=== PATIENT | female | born 1935 | race Caucasian/White ===

== ENCOUNTER → 2016-09-07 | Outpatient (CLI) | payer OTHER ==
[~2016-09-07] MED LIST: LATA0.009; PRM625 PO; TRAM-10 PO
--- NOTE | 2016-09-07 13:42 | MAMMOGRAPHY REPORT ---
BILATERAL DIGITAL SCREENING MAMMOGRAM TOMOSYNTHESIS WITH CAD: 09/07/2016 CLINICAL HISTORY: Routine screening. Patient has no complaints. TECHNIQUE: Breast tomosynthesis in addition to standard 2D mammography was performed. Current study was also evaluated with a Computer Aided Detection (CAD) system. COMPARISON: Comparison is made to exams dated: 09/07/2015 mammogram, 09/03/2014 mammogram, 09/02/2013 ma mmogram, 08/29/2012 mammogram, 08/29/2011 mammogram, and 08/26/2010 mammogram - [facility] nter. BREAST COMPOSITION: There are scattered areas of fibroglandular density in both breasts. FINDINGS: No suspicious masses, calcifications, or areas of architectural distortion are noted in ei ther breast. There has been no significant interval change compared to prior exams. IMPRESSION: ACR BI-RADS CATEGORY 1: NEGATIVE There is no mammographic evidence of malignancy. A 1 year screening mammogram is recommended. The pa tient will receive written notification of the results. Approximately 10% of breast cancers are not detected with mammography. A negative mammographic report should not delay biopsy if a clinically suggestive mass is present. Belen Frances M.D. ah/:09/07/2016 12:35:54 Textile Bag Sewer: Sofia BROWN(Cameron)(Amanda), [facility] letter sent: Normal 1/2 BI-RADS Code: ACR BI-RADS Category 1: Negative
== END | disposition home or self-care (01) ==
LOC: C.MAMM 12:08
PROVIDERS: ATTEND Obstetrics & Gynecology
DX: Z12.31 Encounter for screening mammogram for malignant neoplasm of breast (principal)

== ENCOUNTER → 2016-11-16 | Outpatient (CLI) | payer OTHER ==
[2016-11-16 12:26] LABS: BASO % 0.2 %; BASO ABS # 0.01 K/uL (0-0.2); COMPLETE YES; EOS % 1.8 %; HEMATOCRIT 41.1 % (37-47); IG% 0.2 %; LYMPH ABS # 1.33 K/uL (1.2-3.4); MEAN CELL VOLUME 99.8 fL (80-100); MEAN CORPUSCULAR HEMOGLOBIN 32.5 pg (25-34); MEAN CORPUSCULAR HGB CONC 32.6 g/dl (32-36); MEAN PLATELET VOLUME 11.2 fL (7.4-10.4); MONO % 8.9 %; NEUT % 66.9 %; PLATELET COUNT 236 K/uL (130-400); RED BLOOD COUNT 4.12 M/uL (4.2-5.4); WHITE BLOOD COUNT 6.04 K/uL (4.8-10.8)
[2016-11-16 13:11] LABS: ALT/SGPT 18 U/L (12-78); BLOOD UREA NITROGEN 14 mg/dl (7-18); BUN/CREATININE RATIO 17.1 (10-20); CALCIUM 8.9 mg/dl (8.5-10.1); CARBON DIOXIDE 27 mmol/L (21-32); CHLORIDE 106 mmol/L (98-107); CHOLESTEROL 202 mg/dl (0-200); CREATININE 0.82 mg/dl (0.60-1.20); GLUCOSE 83 mg/dl (70-99); POTASSIUM 4.1 mmol/L (3.5-5.1); SODIUM 137 mmol/L (136-145); TRIGLYCERIDES 87 mg/dl (0-150); VERY LOW DENSITY LIPOPROT CALC 17 mg/dl
[2016-11-16 13:21] LABS: ALKALINE PHOSPHATASE 79 U/L (45-117); AST/SGOT 21 U/L (15-37); CHOLESTEROL/HDL RATIO 2.7; HDL CHOLESTEROL 74 mg/dl; LDL CHOLESTEROL CALCULATED 111 mg/dl
== END | disposition home or self-care (01) ==
LOC: C.LABPVFM 07:55
PROVIDERS: ATTEND Family Medicine
DX: Z13.220 Encounter for screening for lipoid disorders (principal); R53.83 Other fatigue

== ENCOUNTER → 2017-06-07 | Outpatient (CLI) | payer OTHER | END | disposition home or self-care (01) | LOC: C.PAPS 13:50 | PROVIDERS: ATTEND Obstetrics & Gynecology | DX: Z12.4 Encounter for screening for malignant neoplasm of cervix (principal) ==

== ENCOUNTER → 2017-09-11 | Outpatient (CLI) | payer OTHER ==
--- NOTE | 2017-09-12 14:44 | MAMMOGRAPHY REPORT ---
BILATERAL DIGITAL SCREENING MAMMOGRAM TOMOSYNTHESIS WITH CAD: 09/11/2017 CLINICAL HISTORY: Routine screening. Patient has no complaints. TECHNIQUE: The study was acquired using full field digital technology and interpreted from soft copy. Breast tomosynthesis in addition to standard 2D mammography was performed. Current study was also ev aluated with a Computer Aided Detection (CAD) system. COMPARISON: Comparison is made to exams dated: 09/07/2016 mammogram, 09/07/2015 mammogram, 09/24/2014 anna mogram, 09/03/2014 mammogram, 09/02/2013 mammogram, and 08/29/2012 mammogram - [facility]. BREAST COMPOSITION: There are scattered areas of fibroglandular density in both breasts. FINDINGS: There are mild vascular calcifications in the breasts. No suspicious mass, architectural di stortion or cluster of microcalcifications is seen. IMPRESSION: ACR BI-RADS CATEGORY 1: NEGATIVE There is no mammographic evidence of malignancy. A 1 year screening mammogram is recommended.( 019) The patient will receive written notification of the results. Some breast cancers are not detected with mammography. A negative mammographic report should not gabriela y biopsy if a clinically suggestive mass is present. Lisseth Barfield M.D. ay/:09/11/2017 17:33:22 Linoleum Printer: RT John(Cameron)(M), [facility] letter sent: Normal 1/2 BI-RADS Code: ACR BI-RADS Category 1: Negative
== END | disposition home or self-care (01) ==
LOC: C.MAMM 11:45
PROVIDERS: ATTEND Obstetrics & Gynecology
DX: Z12.31 Encounter for screening mammogram for malignant neoplasm of breast (principal)

== ENCOUNTER 2023-10-26 10:14 | Inpatient (IN) ==
--- NOTE | 2023-10-26 10:27 | Emergency Department Note ---
Impression & Plan COVID-19, Ambulatory dysfunction, Adult failure to thrive ED Provider Note Name: RAN BRAY Age: 87 Sex: Female Arrives Via: Ambulance Informant: Patient and her family ED Provider: Haseeb Brewster MD Chief Complaint: Weakness Impression: As per impressions above Medical Decision Making: Nohemi 87-year-old female arrives for evaluation of generalized weakness. Patient woke up this morning was unable to get up and ambulate. Due to the degree of weakness she arrives to the ER for evaluation. No focal deficits on examination other than diffuse weakness. Patient is breathing comfortably she is in no distress otherwise. She did get a COVID and flu vaccine yesterday. Laboratory workup was obtained along with COVID testing. She is positive for COVID. I suspect this is the cause of her diffuse weakness. Due to her difficulty with ambulation she will need hospitalization. She does not have any significant shortness of breath, pneumonia, sepsis, evidence of PE or evidence of stroke at this time. Triage/Nursing Notes reviewed by Me Differential:Infection, dehydration, metabolic abnormality, hypo/hyperglycemia, electrolyte disturbance, anemia, hypoxia, cardiac sources, intracerebral event, toxicologic, neurologic, as well as other pathologies. Vital Signs: reviewed and remarkable for mild hypertension, normal temperature on arrival Interventions: Normal saline bolus 500 mL IV Labs:ED labs Reviewed by me and remarkable for covid positive Imagin view chest x-ray as per my interpretation no infiltrate or effusion appreciated EKG:As per my interpretation. Indication weakness. Sinus tachycardia 103 bpm without ectopy nor ischemia. There is evidence of a left bundle branch block and some lateral T wave inversions. Similar to EKG of 10/17/2022 Cardiac/Tele Monitoring: Cardiac Monitoring: An Order was placed for continuous cardiac monitoring. The monitor shows a rate of 100 with a sinus tach rhythm. Consults:Discussed with [facility] hospitalist who will further evaluate for management. Plan: Disposition:Hospitalization. Condition: Good History of Present Illness: Nohemi 87-year-old female arrives for evaluation of weakness. Patient notes she awoke this morning and when trying to get out of bed she felt too weak. She did collapsed to the floor and sat on the ground for some time. States she just has no energy. Primarily weakness is in her legs. She continues to build to move them. She had some mild soreness in her low back when she had collapsed but denies any current back pain or discomfort.. Did not hit her head or lose consciousness. She denies any neck pain, chest pain, shortness of breath, palpitations, nausea, vomiting, urinary symptoms, diarrhea, current back pain, paresthesias down her legs or other concerning signs or symptoms. She had been feeling well up until this morning. Notes that she did get both her flu and her COVID-vaccine yesterday. No known sick contacts. Past Medical History:See Below Home Medications:See Below Allergies:See Below Vitals:Blood Pressure: 130/60, Pulse 80, RR 18, T 36.8C, O2 95% on RA Physical Exam: GENERAL: Patient is tired/dehydrated appearing and in minimal distress. HEAD: AT/NC RESPIRATORY: No dyspnea. Clear to auscultation and equal bilaterally. CARDIOVASCULAR: Regular rate and rhythm.No murmur appreciated. GASTROINTESTINAL: Abdomen soft, non-tender, no peritonitis. BACK: No midline tenderness, no CVA tenderness EXTREMITIES: Normal motion all extremities, no cyanosis, no edema. NEUROLOGIC: Alert and oriented. No focal neurologic deficits appreciated SKIN: Venous stasis in legs, No rash, no jaundice, no diaphoresis. PSYCH: Appropriate GCS: 15 ED Course: Times/Reassessments: Stable feeling a bit better after IV fluids but still too weak to ambulate and thus agreeable to hospitalization Haseeb Brewster MD Past Med/Surg History Problem List (Updated 10/26/23 @ 16:07 by Haseeb Brewster MD) Adult failure to thrive (Acute) Ambulatory dysfunction (Acute) COVID-19 (Acute) COVID-19 virus infection Generalized weakness Arthritis of carpometacarpal (CMC) joint of right thumb Insufficiency of right posterior tibial tendon Left bundle branch block White coat syndrome with diagnosis of hypertension Encounter for immunization Palpitations Bilateral rotator cuff dysfunction Status post fall Fatigue Bilateral knee effusions Chondrocalcinosis Gout Shoulder pain Bilateral primary osteoarthritis of knee Osteoarthritis (Chronic) Hypertension currently not on meds Hypophosphatemia S/P small bowel resection (04/07/20) Laparotomy with lysis of adhesions and small bowel resection with anastomosis. Dr. Sanchez 04/07/2020 Vitamin D deficiency (Chronic) Bone/cartilage disorder Right ovarian cyst simple cyst per US, followed by gynecology teacher Medical History Encounter for examination following treatment at hospital Surgical History Hx of colonoscopy Hx of tonsillectomy H/O oophorectomy Hx of appendectomy S/P total abdominal hysterectomy Family History Father Myocardial infarction Mother Cancer Sister Breast cancer Denies family history of Ovarian cancer Prostate cancer Colorectal cancer Social History Smoking Status: Never smoker Second Hand Exposure: No; Do You Dip or Chew Tobacco: No; Hx Alcohol Use: Yes Alcohol type: wine Alcohol Intake Frequency: Monthly or Less Hx Substance Use: No Preferred Language: Italian Communication Ability: Effective Visual Impairment: No Limitations Hearing Ability: Use of Hearing Aid [place] Machine Operator Required: No Beliefs That Will Affect Care: None marital status: / Current Living Situation: Alone Current Living Situation Comment: [place] current occupational status: retired current occupation: retired teacher How many Children do You have: 2 Feels Safe at Home: Yes Safety Concerns: Feels Safe At This Time Childhood Exposure to Second-Hand Smoke: No Diet: regular caffeine: Yes during the past year weight has: remained stable Dental Care, Regularly: Yes Physical Activity Frequency: 3-4 Times per Week Seatbelt Use: always Sunscreen Use: Yes Assistive Devices: None Allergies Allergies Allergy/AdvReac Type Severity Reaction Status Date / Time Penicillins Allergy Unknown Unknown Verified 10/26/23 13:13 amoxicillin Allergy Unknown Verified 10/26/23 13:13 gabapentin AdvReac Unknown Verified 10/26/23 13:13 methocarbamol AdvReac Facial Verified 10/26/23 13:13 redness and swelling. Home Meds Home Medications Medication Instructions Recorded Confirmed multivitamin (Multiple Vitamins 1 tab PO DAILY 05/20/19 10/26/23 tablet) latanoprost 0.005 % eye drops 1 drops OPL DAILY 08/12/19 10/26/23 (Xalatan) cholecalciferol (vitamin D3) 25 1,000 unit PO DAILY 04/02/20 10/26/23 mcg (1,000 unit) tablet (Vitamin D3) cyanocobalamin (vitamin B-12) 1,000 mcg PO DAILY 04/02/20 10/26/23 1,000 mcg tablet (Vitamin B-12) acetaminophen 650 mg 650 mg PO BID 10/17/22 10/26/23 tablet,extended release ibuprofen 200 mg tablet (Advil) 200 mg PO BID 10/17/22 10/26/23 ascorbic acid 7.5 mg-vit E 7.5 2 tab PO DAILY 12/06/22 10/26/23 unit-biotin 1,250 mcg chewable tablet (Hair,Skin,Nails with Biotin) Previous Rx's Medication Instructions Recorded conjugated estrogens 0.3 mg tablet 0.3 mg PO Q OTHER DAY #45 tabs 09/20/23 Results & Data (ED) Vital Signs Vital Signs - 24 hr 10/26/23 10:27 10/26/23 10:35 10/26/23 10:42 Temperature 36.6 C Temperature Source Oral Pulse Rate 100 H 104 H 98 H Pulse Rate from SpO2 Sensor 98 H Respiratory Rate 18 22 Respiratory Effort / Characteristics Non-Labored Spontaneous Respiratory Depth Normal Respiratory Pattern Regular Blood Pressure 174/78 H Blood Pressure Mean 110 Blood Pressure Position Semi-fowlers Pulse Oximetry 95 94 Oxygen Delivery Method Room Air Sepsis Recent Fever Within 48 Hours No Sepsis New/Unexplained Change in Mental Status No Sepsis Action Taken by Nursing No Action Required 10/26/23 11:15 10/26/23 11:27 Temperature Temperature Source Pulse Rate 92 H 90 Pulse Rate from SpO2 Sensor 90 86 Respiratory Rate 21 18 Respiratory Effort / Characteristics Respiratory Depth Respiratory Pattern Blood Pressure Blood Pressure Mean Blood Pressure Position Pulse Oximetry 93 95 Oxygen Delivery Method Sepsis Recent Fever Within 48 Hours Sepsis New/Unexplained Change in Mental Status Sepsis Action Taken by Nursing Laboratory Data 10/26/23 10:25 10/26/23 10:25 Lab Results 10/26/23 Range/Units 10:25 WBC 5.62 (4.8-10.8) K/ul RBC 4.04 L (4.20-5.40) M/uL Hgb 13.3 (12.0-16.0) g/dl Hct 38.7 (37.0-47.0) % MCV 95.8 (80.0-100.0) fL MCH 32.9 (25.0-34.0) pg MCHC 34.4 (32.0-36.0) g/dL RDW Std Deviation 49.0 H (36.4-46.3) fL RDW Coeff of Godfrey 13.7 (11.5-14.5) % Plt Count 208 (130-400) K/uL MPV 10.6 (9.4-12.4) fL Immature Gran % (Auto) 0.0 % Neut % (Auto) 87.4 % Lymph % (Auto) 4.1 % [place] % (Auto) 7.8 % Eos % (Auto) 0.5 % Baso % (Auto) 0.2 % Neut # (Auto) 4.91 (1.40-6.50) K/uL Lymph # (Auto) 0.23 L (1.20-3.40) K/uL [place] # (Auto) 0.44 (0.11-0.59) K/uL Eos # (Auto) 0.03 (0.00-0.50) K/uL Baso # (Auto) 0.01 (0.00-0.20) K/uL Immature Gran # (Auto) 0.00 L (0.01-0.20) K/uL Sodium 136 (136-145) mmol/L Potassium 4.0 (3.5-5.1) mmol/L Chloride 100 (98-107) mmol/L Carbon Dioxide 31 (21-32) mmol/L Anion Gap 5 (3-11) BUN 16 (6-23) mg/dl Creatinine 0.77 (0.6-1.2) mg/dl Est Cr Clr Drug Dosing 46.3 ml/min Est GFR ( Amer) 80.5 ml/min Est GFR (Non-Af Amer) 69.4 ml/min BUN/Creatinine Ratio 20.8 H (10-20) Glucose 120 H (70-99(Fasting)) mg/dl Calcium 9.5 (8.6-10.3) mg/dl Magnesium 1.8 (1.7-2.4) mg/dl Total Bilirubin 0.7 (0.2-1.0) mg/dl Direct Bilirubin 0.2 (0-0.2) mg/dl AST 18 (13-39) U/L ALT 9 (7-52) U/L Alkaline Phosphatase 59 (34-104) U/L Troponin I High Sens 5.2 (0-14) pg/ml Total Protein 6.9 (6.0-8.3) gm/dl Albumin 4.1 (3.4-5.0) gm/dl Procalcitonin 0.05 (0-0.5) ng/ml TSH 2.920 (0.300-4.500) uIu/ml SARS-CoV-2 (PCR) POSITIVE A (Negative) Influenza Type A (PCR) Negative (Neg) Influenza Type B (PCR) Negative (Neg) RSV (RT-PCR) Negative (Neg) Administered Medications Acetaminophen (Acetaminophen 325 Mg Tab) 650 mg PO Q6H PRN PRN Reason: pain(1-4),headache,fever Stop: 11/25/23 11:39 Last Admin: 10/26/23 15:53 Dose: 650 mg Documented By: SHAMIKA Discontinued Medications Sodium Chloride (Nss) 500 mls @ 999 mls/hr IV .Q31M ONE Stop: 10/26/23 10:54 Last Infusion: 10/26/23 12:12 Dose: Infused Documented By: Admin: 10/26/23 10:31 Dose: 999 mls/hr Documented By: WOODROW Imaging Data Radiologist's Impression: Chest X-Ray 10/26/23 10:25 XR chest 1V portable CLINICAL HISTORY: Weakness. COMPARISON STUDY: Chest radiograph chest CT October 17, 2022. FINDINGS: Lung volumes are normal. Lungs are clear. There is no pneumothorax or pleural effusion. Mild cardiomegaly. Mediastinal contours are normal. There is no evidence for pulmonary edema. A calcified left lower lobe granuloma is incidentally noted. IMPRESSION: No acute cardiopulmonary findings. ACT 112: Negative or not required by law. Electronically signed by: Marcellus Cabrera M.D. 10/26/2023 10:48 AM Discharge Plan Visit Data Chief Complaint: Leg Weakness, Bilateral Stated Complaint: LEG WEAKNESS ED Provider: Haseeb Brewster Discharge Problem: COVID-19, Ambulatory dysfunction, Adult failure to thrive Patient Disposition: Admitted As Inpatient Discharge Instructions Interventions: ED Discharge Assessment Last Done: 10/26/23 16:06
[2023-10-26] MEDS: SODIUM CHLORIDE 0.9% 500 ML IV ONE (10:31)
[2023-10-26 10:40] LABS: Basophils # (auto) 0.01 K/uL (0.00-0.20); Basophils % (auto) 0.2 %; Eosinophils # (auto) 0.03 K/uL (0.00-0.50); Eosinophils % (auto) 0.5 %; Hematocrit (blood only) 38.7 % (37.0-47.0); Hemoglobin 13.3 g/dl (12.0-16.0); Lymphocytes # (auto) 0.23 K/uL (1.20-3.40); Lymphocytes % (auto) 4.1 %; Mean Corpuscular Hemoglobin 32.9 pg (25.0-34.0); Mean Corpuscular Hgb Conc 34.4 g/dL (32.0-36.0); Mean Corpuscular Volume 95.8 fL (80.0-100.0); Mean Platelet Volume 10.6 fL (9.4-12.4); Monocytes # (auto) 0.44 K/uL (0.11-0.59); Monocytes % (auto) 7.8 %; Neutrophils # (auto) 4.91 K/uL (1.40-6.50); Neutrophils % (auto) 87.4 %; Platelet Count 208 K/uL (130-400); RDW Coefficient of Variation 13.7 % (11.5-14.5); Red Blood Count 4.04 M/uL (4.20-5.40); White Blood Count 5.62 K/ul (4.8-10.8)
--- NOTE | 2023-10-26 10:49 | XRay Report ---
XR chest 1V portable CLINICAL HISTORY: Weakness. COMPARISON STUDY: Chest radiograph chest CT October 17, 2022. FINDINGS: Lung volumes are normal. Lungs are clear. There is no pneumothorax or pleural effusion. Mil d cardiomegaly. Mediastinal contours are normal. There is no evidence for pulmonary edema. A calcifie d left lower lobe granuloma is incidentally noted. IMPRESSION: No acute cardiopulmonary findings. ACT 112: Negative or not required by law. Electronically signed by: Marcellus Cabrera M.D. 10/26/2023 10:48 AM
[2023-10-26 10:56] LABS: Albumin Level 4.1 gm/dl (3.4-5.0); BUN Creatinine Ratio 20.8 (10-20); Bilirubin Direct 0.2 mg/dl (0-0.2); Bilirubin,Total 0.7 mg/dl (0.2-1.0); Calcium 9.5 mg/dl (8.6-10.3); Creatinine Clr Calc Pharmacy 46.3 ml/min; Est GFR (African American) 80.5 ml/min; Est GFR (Non-African American) 69.4 ml/min; Magnesium 1.8 mg/dl (1.7-2.4); Total Protein 6.9 gm/dl (6.0-8.3)
[2023-10-26 11:02] LABS: Troponin I High Sensitivity 5.2 pg/ml (0-14)
[2023-10-26 11:11] LABS: Influenza A virus by PCR Negative (Neg); Influenza B virus by PCR Negative (Neg); RSV by PCR Negative (Neg); SARS CoV2 RNA(COVID-19) Ceph POSITIVE (Negative)
[2023-10-26 11:12] LABS: Thyroid Stimulating Hormone 2.92 uIu/ml (0.300-4.500)
--- NOTE | 2023-10-26 11:36 | History & Physical Report ---
Date of Service October 26, 2023 Assessment & Plan (1) Generalized weakness: Plan: Admit to [facility] on pulse oximetry Currently stable nontoxic-appearing Presented to ED via EMS after sustaining a fall trying to get out of bed this morning Patient woke with generalized weakness/fatigue and confirms that her bilateral knees gave out when she tried to stand out of bed Denies symptoms such as lightheadedness, dizziness, chest pain, palpitations, shortness of breath prior to her fall Did not lose consciousness, is not on anticoagulation At this time it appears her generalized weakness is due to acute COVID-19 infection, patient and her family were educated that she did not receive COVID from the COVID-19 vaccine but that receiving the vaccine on 10/25/2023 likely increased her autoimmune activity causing significant weakness Patient is stable on room air, discussed the option of outpatient prescription for Paxlovid which family can bring in and we can give to her starting today, they are in agreement Full dose prescription for Paxlovid has been called to [facility], daughter will pick this prescription up this afternoon and bring back in Miscellaneous med rec order has been placed with nursing communication order to send prescription for Paxlovid down to the pharmacy for confirmation Supportive care for now with incentive spirometry, as needed albuterol SQ Lovenox for DVT prophylaxis PT/OT consults, fall/aspiration precautions Heart healthy diet AM CBC, CMP, mag, PT/INR (2) Fall: Plan: Experienced a fall while attempting to get out of bed this morning due to her bilateral knees giving out from generalized weakness Likely due to generalized weakness from acute COVID-19 infection No acute trauma on exam, nonfocal neurologic exam Do not think her fall/generalized weakness is due to neurologic complication from vaccination at this time such as Guillain-Sams syndrome, continue to monitor for patient with Paxlovid and supportive care for now Rest of care per generalized weakness plan (3) COVID-19 virus infection: Plan: Stable on room air and in no respiratory distress Only symptoms at this time are generalized weakness Will start Paxlovid this afternoon when daughter brings prescription which was called in at the time of admission Plan Patient was discussed with Dr. Vergara at the time of the admission History of Present Illness Chief Complaint: Generalized weakness, fall Primary Care Provider: CHAYO Darden is a 87-year-old female with a past medical history significant for hypertension, left bundle branch block, and gout who presented to [facility] ED via EMS on 10/26/2023 after sustaining a fall while trying to get out of bed due to generalized weakness. The patient reported she was recently around individuals who are positive for COVID-19 and happened receive her COVID-19 and influenza vaccinations on 10/25/2023. On arrival she was noted to be hypertensive at 174/78, tachycardic at 104, but otherwise stable. Labs were significant for SARS-CoV-2 PCR positive with influenza/RSV screens negative. Chest x-ray is negative for acute findings. We are asked to admit the patient as she is currently too weak to safely ambulate at home herself. Prior to admission the patient was given 500 mL normal saline. Patient was seen in bed no acute distress at time the exam with her daughter and son-in-law sitting bedside, history is obtained from all. They confirm that multiple family members were recently diagnosed with COVID and that the patient received her doses of the COVID-19 and influenza vaccines on 10/25/2023. The patient states that when she woke this a.m. she was significantly fatigued and generally weak. When she tried to get out of bed her bilateral knees buckled and gave out causing her to fall to the ground. She landed on her buttocks and does not believe that she hit her head. She denies losing consciousness. Denies any pain from her fall. No recent headache, changes in vision, hearing, taste, smell, paresthesias, unilateral weakness, chest pain, shortness of breath, abdominal pain, nausea/vomiting, diarrhea, dysuria/hematuria, or recent lower extremity swelling. We discussed the option of having family pickler helper an outpatient prescription for Paxlovid which they could bring in so she could begin treatment during this admission. They are in agreement with this plan, her daughter will pickler helper the prescription this afternoon and bring it back to the hospital. Patient confirms she is a DNR/DNI and would want her daughter to make medical decisions for her if she cannot make them herself. Please refer to Dr. Vergara's attestation for any changes to the treatment plan Allergies Allergy/AdvReac Type Severity Reaction Status Date / Time Penicillins Allergy Unknown Unknown Verified 10/26/23 13:13 amoxicillin Allergy Unknown Verified 10/26/23 13:13 gabapentin AdvReac Unknown Verified 10/26/23 13:13 methocarbamol AdvReac Facial Verified 10/26/23 13:13 redness and swelling. Home Medications Medication Instructions Recorded Confirmed Type multivitamin (Multiple Vitamins 1 tab PO DAILY 05/20/19 10/26/23 History tablet) latanoprost 0.005 % eye drops 1 drops OPL DAILY 08/12/19 10/26/23 History (Xalatan) cholecalciferol (vitamin D3) 25 1,000 unit PO DAILY 04/02/20 10/26/23 History mcg (1,000 unit) tablet (Vitamin D3) cyanocobalamin (vitamin B-12) 1,000 mcg PO DAILY 04/02/20 10/26/23 History 1,000 mcg tablet (Vitamin B-12) acetaminophen 650 mg 650 mg PO BID 10/17/22 10/26/23 History tablet,extended release ibuprofen 200 mg tablet (Advil) 200 mg PO BID 10/17/22 10/26/23 History ascorbic acid 7.5 mg-vit E 7.5 2 tab PO DAILY 12/06/22 10/26/23 History unit-biotin 1,250 mcg chewable tablet (Hair,Skin,Nails with Biotin) conjugated estrogens 0.3 mg tablet 0.3 mg PO Q OTHER DAY #45 tabs 09/20/23 10/26/23 Rx Past Med/Surg History Problem List (Updated 10/26/23 @ 16:07 by Haseeb Brewster MD) Adult failure to thrive (Acute) Ambulatory dysfunction (Acute) COVID-19 (Acute) COVID-19 virus infection Generalized weakness Arthritis of carpometacarpal (CMC) joint of right thumb Insufficiency of right posterior tibial tendon Left bundle branch block White coat syndrome with diagnosis of hypertension Encounter for immunization Palpitations Bilateral rotator cuff dysfunction Status post fall Fatigue Bilateral knee effusions Chondrocalcinosis Gout Shoulder pain Bilateral primary osteoarthritis of knee Osteoarthritis (Chronic) Hypertension currently not on meds Hypophosphatemia S/P small bowel resection (04/07/20) Laparotomy with lysis of adhesions and small bowel resection with anastomosis. Dr. Sanchez 04/07/2020 Vitamin D deficiency (Chronic) Bone/cartilage disorder Right ovarian cyst simple cyst per US, followed by plastics fabricator and assembler Medical History Encounter for examination following treatment at hospital Surgical History Hx of colonoscopy Hx of tonsillectomy H/O oophorectomy Hx of appendectomy S/P total abdominal hysterectomy Family History Father Myocardial infarction Mother Cancer Sister Breast cancer Denies family history of Ovarian cancer Prostate cancer Colorectal cancer Social History Smoking Status: Never smoker Second Hand Exposure: No; Do You Dip or Chew Tobacco: No; Hx Alcohol Use: Yes Alcohol type: wine Alcohol Intake Frequency: Monthly or Less Hx Substance Use: No Preferred Language: Bulgarian Communication Ability: Effective Visual Impairment: No Limitations Hearing Ability: Use of Hearing Aid Cell Operation Supervisor Required: No Beliefs That Will Affect Care: None marital status: / Current Living Situation: Alone Current Living Situation Comment: [place] current occupational status: retired current occupation: retired teacher How many Children do You have: 2 Feels Safe at Home: Yes Safety Concerns: Feels Safe At This Time Childhood Exposure to Second-Hand Smoke: No Diet: regular caffeine: Yes during the past year weight has: remained stable Dental Care, Regularly: Yes Physical Activity Frequency: 3-4 Times per Week Seatbelt Use: always Sunscreen Use: Yes Assistive Devices: None Physical Exam Physical Exam: Physical Exam: General: In no acute distress, stated age, nontoxic-appearing HEENT: Normocephalic, atraumatic, no scleral icterus, pupils around round, symmetrical, and reactive to light, moist mucus membranes, trachea midline, no thyromegaly Chest/Pulm: No respiratory distress, symmetrical chest expansion, clear breath sounds throughout Cardiac: RRR, no murmurs noted Abdomen: Negative for ascites and bruising, normoactive bowel sounds, soft, non-tender to palpation throughout Musculoskeletal: Symmetrical and without signs of acute trauma, upper and lower extremities with full ROM, no atrophy, spasticity, or flaccidity Extremities: Radial, dorsalis pedis, and posterior tibial pulses are intact and symmetrical, no edema noted in the BL LE's Skin: Warm, dry, no rashes , lesions, or scars noted Neuro: Alert and oriented to person, place, month, year, and president, no focal defects, intact sensation motor function in the bilateral lower extremities, symmetrical 4+ strength in the bilateral lower extremities, no tremors noted Psych: No acute distress, calm and cooperative during the exam Results & Data Results & Data Vital Signs (Past 12 Hours) Vital Signs Temp Pulse Resp BP Pulse Ox O2 Del Method 10/26/23 10:35 104 H 10/26/23 10:27 36.6 C 100 H 18 174/78 H 95 Room Air Laboratory Results Abnormal lab results 10/26/23 Range/Units 10:25 RBC 4.04 L (4.20-5.40) M/uL RDW Std Deviation 49.0 H (36.4-46.3) fL Lymph # (Auto) 0.23 L (1.20-3.40) K/uL Immature Gran # (Auto) 0.00 L (0.01-0.20) K/uL BUN/Creatinine Ratio 20.8 H (10-20) Glucose 120 H (70-99(Fasting)) mg/dl SARS-CoV-2 (PCR) POSITIVE A (Negative) Diagnostic Findings Chest X-Ray 10/26/23 10:25 XR chest 1V portable CLINICAL HISTORY: Weakness. COMPARISON STUDY: Chest radiograph chest CT October 17, 2022. FINDINGS: Lung volumes are normal. Lungs are clear. There is no pneumothorax or pleural effusion. Mild cardiomegaly. Mediastinal contours are normal. There is no evidence for pulmonary edema. A calcified left lower lobe granuloma is incidentally noted. IMPRESSION: No acute cardiopulmonary findings. ACT 112: Negative or not required by law. Electronically signed by: Marcellus Cabrera M.D. 10/26/2023 10:48 AM Code Status & VTE Plan Code Status DNR/DNI VTE Prophylaxis Plan VTE Prophylaxis will be ordered: Yes Supervising Physician Co-Signing Physician Notes I personally saw and examined the patient. I verified all rodriguez points and agree with Domingo Lao PA-C with the following exceptions and/or additions: 87 year old female presents to the ER with generalized weakness following COVID and influenza vaccine. Contact with people with COVID over the weekend. No current respiratory symptoms. O/E HS RRR, no murmurs, Chest CTAB, Abdo SNT, drooping of left eyelid (chronic), otherwise CN 2-> 12 intact, b/l LE hips flexion 4/5 A/P Generalized weakness - likely a result of COVID and subsequent vaccination. Not one sided. PT/OT COVID - Discussed benefits and risks of Paxlovid and she wished to take this therefore prescribed to outside pharmacy and will be brought in PG Care Time/CCT Total # of Minutes Spent Total Time Spent with Patient: Total time spent is greater than 50% in coordination of care (as documented) at patient's floor/unit and/or counseling patient: C[place] [address] INT INP/OBS CARE 2/55MIN Patient Type Established Medical Decision Making Moderate Complexity Diagnoses Generalized weakness R53.1 Fall W19.XXXA Encounter type: initial encounter COVID-19 virus infection U07.1 (2) Fall Encounter type: initial encounter Qualified Code(s): W19.XXXA - Unspecified fall, initial encounter
[2023-10-26] MEDS ORDERED: ALBUTEROL 0.5% NEB SOLN 2.5 MG/0.5 ML VIAL NEB PRN (11:59)
--- NOTE | 2023-10-26 14:41 | Electrocardiogram Report ---
Test Reason : Blood Pressure : */* mmHG Vent. Rate : 103 BPM Atrial Rate : 103 BPM P-R Int : 178 ms QRS Dur : 148 ms QT Int : 370 ms P-R-T Axes : 81 -48 100 degrees QTcB Int : 484 ms Sinus tachycardia Left atrial enlargement Left axis deviation Left bundle branch block Abnormal ECG When compared with ECG of 17-Oct-2022 09:19, No significant change Confirmed by Gulshan Phillips ([id number]) on 10/26/2023 2:41:23 PM Referred By: REFERRED SELF Confirmed By: Gulshan Phillips
[2023-10-26] MEDS: ACETAMINOPHEN 325 MG TAB PO PRN (15:53)
[2023-10-26] MEDS: ENOXAPARIN INJ 40 MG/0.4 ML SYR SQ SCH (20:54)
[2023-10-26] MEDS: NIRMATRELVIR PO SCH (20:54)
[2023-10-26] MEDS: RITONAVIR PO SCH (20:54)
[2023-10-27] MEDS: COUGH DROP (SUGAR FREE) LOZ 24 LOZ/1 BOX BUCCAL STA (05:43)
[2023-10-27 06:37] LABS: Albumin Globulin Ratio 1.4 (0.9-2); Albumin Level 3.7 gm/dl (3.4-5.0); BUN Creatinine Ratio 20.8 (10-20); Basophils # (auto) 0.01 K/uL (0.00-0.20); Basophils % (auto) 0.2 %; Bilirubin,Total 0.6 mg/dl (0.2-1.0); Calcium 8.7 mg/dl (8.6-10.3); Creatinine Clr Calc Pharmacy 49.5 ml/min; Eosinophils # (auto) 0.01 K/uL (0.00-0.50); Eosinophils % (auto) 0.2 %; Est GFR (African American) 87.3 ml/min; Est GFR (Non-African American) 75.3 ml/min; Globulin 2.6 gm/dl (2.5-4.0); Hematocrit (blood only) 36.5 % (37.0-47.0); Hemoglobin 12.2 g/dl (12.0-16.0); Lymphocytes # (auto) 0.56 K/uL (1.20-3.40); Magnesium 1.7 mg/dl (1.7-2.4); Mean Corpuscular Hemoglobin 32.4 pg (25.0-34.0); Mean Corpuscular Hgb Conc 33.4 g/dL (32.0-36.0); Mean Corpuscular Volume 97.1 fL (80.0-100.0); Mean Platelet Volume 10.9 fL (9.4-12.4); Monocytes # (auto) 0.39 K/uL (0.11-0.59); Monocytes % (auto) 9.7 %; Neutrophils # (auto) 3.04 K/uL (1.40-6.50); Neutrophils % (auto) 75.9 %; Platelet Count 176 K/uL (130-400); Potassium 3.7 mmol/L (3.5-5.1); RDW Coefficient of Variation 13.9 % (11.5-14.5); Red Blood Count 3.76 M/uL (4.20-5.40); Total Protein 6.3 gm/dl (6.0-8.3); White Blood Count 4.01 K/ul (4.8-10.8)
[2023-10-27 07:01] LABS: INR 1.1 (0.9-1.1); Prothrombin Time 11.9 Seconds (9.0-12.0)
[2023-10-27 09:30] LABS: C Reactive Protein 4.83 mg/dl (0-0.5)
[2023-10-27] MEDS: dexAMETHasone 4 MG TAB PO SCH (10:18)
[2023-10-27 15:02] LABS: Appearance Urine Clear (Clear); Bacteria Urine Automated 1+ (None Seen); Bilirubin Urine Negative (Negative); Blood Urine 1+ (Negative); Color Urine Yellow; Glucose Urine UA Negative (Negative); Ketones Urine 1+ (Negative); Leukocyte Esterase Urine Negative (Negative); Nitrite Urine Negative (Negative); Protein Urine Trace (Negative); Urobilinogen Urine Negative (Negative); WBC Urine Automated 0-5 /hpf (0-5)
--- NOTE | 2023-10-27 15:11 | Hospitalist Progress Note ---
Date of Service October 27, 2023 Assessment & Plan (1) Generalized weakness: Plan: Patient presented to the ED on 10/25 after sustaining a fall trying to get out of bed. She awoke with generalized weakness/fatigue and confirmed b/l knees gave out when she tried to stand out of bed. Patient denies LOC and is not on anticoagulation. She has several family members with COVID and also recently got the COVID-19 vaccine on 10/24. -Respiratory Biofire revealed + COVID-19 -Family picked up Paxlovid from pharmacy to start in hospital -Started dexamethasone 6mg PO x 10 days on 10/26 -Tylenol prn for pain/fever -supporitve care with incentive spirometry, albuterol prn -PT/OT recommending rehab - referrals placed -Urine culture pending AM CBC, BMP (2) Fall: Plan: Experienced a fall while attempting to get out of bed this morning due to her bilateral knees giving out from generalized weakness Likely due to generalized weakness from acute COVID-19 infection No acute trauma on exam, nonfocal neurologic exam Do not think her fall/generalized weakness is due to neurologic complication from vaccination at this time such as Guillain-Sams syndrome, continue to monitor for patient with Paxlovid and supportive care for now Rest of care per generalized weakness plan (3) COVID-19 virus infection: Plan: Stable on room air and in no respiratory distress Will start Paxlovid this afternoon when daughter brings prescription which was called in at the time of admission -Dexamethasone added 10/26 -CRP 10/26: 4.83 - continue to trend AM CRP Plan Code status: DNR/DNI Diet: heart healthy DVT prophylaxis: Lovenox Disposition: continued inpatient stay Admission and Anticipated Discharge Date Admission Date: October 26, 2023 Subjective Patient seen and examined this afternoon. Patient states that she has a sore throat and mild cough. Denies any congestion. Denies CP or SOB. She states that the Tylenol she received did help her throat minimally. Patient has been febrile throughout day but at time of encounter, she was afebrile. Physical Exam 2 Constitutional: WD/WN, vitals as above Eyes: PERRL, conjunctivae normal, anicteric sclerae Respiratory: normal respiratory effort, lungs clear to auscultation Cardiovascular: RRR, no murmur, no edema Skin: no rashes, warm and dry Psychiatric: A+Ox3, euthymic affect Results & Data Results & Data Vital Signs (Past 12 Hours) Vital Signs Temp Pulse Resp BP Pulse Ox O2 Del Method 10/27/23 14:16 36.7 C 75 18 131/69 93 Room Air 10/27/23 10:18 37.9 C H 10/27/23 08:47 Room Air 10/27/23 07:43 38.0 C H 104 H 18 178/70 H 92 Room Air Laboratory Results 10/27/23 05:45 10/27/23 05:45 PG Care Time/CCT Total # of Minutes Spent Total Time Spent with Patient: Total time spent is greater than 50% in coordination of care (as documented) at patient's floor/unit and/or counseling patient: Coding Level of Care Code 00155 SUB INP/OBS CARE 2/35MIN Diagnoses Generalized weakness R53.1 Fall W19.XXXA Encounter type: initial encounter COVID-19 virus infection U07.1 (2) Fall Encounter type: initial encounter Qualified Code(s): W19.XXXA - Unspecified fall, initial encounter
[2023-10-28 09:02] LABS: Hemoglobin 13.4 g/dl (12.0-16.0); Immature Granulocytes # (auto) 0.01 K/uL (0.01-0.20); Immature Granulocytes % (auto) 0.3 %; Lymphocytes # (auto) 0.66 K/uL (1.20-3.40); Lymphocytes % (auto) 17.6 %; Mean Corpuscular Hemoglobin 33.1 pg (25.0-34.0); Mean Corpuscular Hgb Conc 35.3 g/dL (32.0-36.0); Mean Corpuscular Volume 93.8 fL (80.0-100.0); Mean Platelet Volume 10.8 fL (9.4-12.4); Monocytes # (auto) 0.18 K/uL (0.11-0.59); Monocytes % (auto) 4.8 %; Neutrophils # (auto) 2.89 K/uL (1.40-6.50); Neutrophils % (auto) 77.3 %; Platelet Count 189 K/uL (130-400); RDW Coefficient of Variation 13.4 % (11.5-14.5); RDW Standard Deviation 46.5 fL (36.4-46.3); Red Blood Count 4.05 M/uL (4.20-5.40); White Blood Count 3.74 K/ul (4.8-10.8)
[2023-10-28 09:20] LABS: Albumin Globulin Ratio 1.2 (0.9-2); Albumin Level 3.7 gm/dl (3.4-5.0); BUN Creatinine Ratio 32.3 (10-20); Bilirubin,Total 0.5 mg/dl (0.2-1.0); C Reactive Protein 6.7 mg/dl (0-0.5); Calcium 8.6 mg/dl (8.6-10.3); Creatinine Clr Calc Pharmacy 57.5 ml/min; Est GFR (Non-African American) 81.1 ml/min; Magnesium 1.8 mg/dl (1.7-2.4); Potassium 3.8 mmol/L (3.5-5.1); Total Protein 6.7 gm/dl (6.0-8.3)
[2023-10-28 09:24] LABS: INR 1.1 (0.9-1.1); Prothrombin Time 11.4 Seconds (9.0-12.0)
--- NOTE | 2023-10-28 11:16 | Hospitalist Progress Note ---
Date of Service October 28, 2023 Assessment & Plan (1) Generalized weakness: Plan: Patient presented to the ED on 10/25 after sustaining a fall trying to get out of bed. She awoke with generalized weakness/fatigue and confirmed b/l knees gave out when she tried to stand out of bed. Patient denies LOC and is not on anticoagulation. She has several family members with COVID and also recently got the COVID-19 vaccine on 10/24. -Respiratory Biofire revealed + COVID-19 -CXR negative 10/25 -Paxlovid stopped as medication is used to prevent hospitalization. Patient started on steroids for better alternative. -Started dexamethasone 6mg PO x 10 days on 10/26 -Tylenol prn for pain/fever -supportive care with incentive spirometry, albuterol prn -PT/OT recommending rehab - referrals placed -Urine culture pending - pin point growth re-incubating -CBC/BMP 10/27 reviewed: stable AM CBC, BMP (2) Fall: Plan: Experienced a fall while attempting to get out of bed due to bilateral knees giving out from generalized weakness. Etiology likely due to generalized weakness from acute COVID-19 infection Less likely due ot neurologic complication from vaccination such as Guillain- [place] syndrome. No acute trauma on examination and nonfocal neurologic exam. Rest of care per generalized weakness plan (3) COVID-19 virus infection: Plan: Stable on room air and in no respiratory distress -Dexamethasone started 10/26 -CRP 10/27:6.70- continue to trend AM CRP Plan Informed CM that patient would be stable for discharge pending rehab placement 10/27. Code status: DNR/DNI Diet: heart healthy DVT prophylaxis: Lovenox Disposition: continued inpatient stay pending placement Admission and Anticipated Discharge Date Admission Date: October 26, 2023 Subjective Patient seen and examined this morning. Patient reported to be feeling better today. She reports her sore throat has improved since yesterday. Her main complaint is the feeling of weakness. She states she was able to walk to the bathroom in her room this morning. She denied CP or SOB. Physical Exam 2 Constitutional: WD/WN, vitals as above Eyes: PERRL, conjunctivae normal, anicteric sclerae Respiratory: normal respiratory effort, lungs clear to auscultation Cardiovascular: RRR, no murmur, no edema Skin: no rashes, warm and dry Psychiatric: A+Ox3, euthymic affect Results & Data Results & Data Vital Signs (Past 12 Hours) Vital Signs Temp Pulse Resp BP Pulse Ox O2 Del Method 10/28/23 09:12 36.5 C 10/28/23 08:03 Room Air 10/28/23 07:51 73 16 159/80 H 95 Room Air Laboratory Results 10/28/23 08:12 10/28/23 08:12 PG Care Time/CCT Total # of Minutes Spent Total Time Spent with Patient: Total time spent is greater than 50% in coordination of care (as documented) at patient's floor/unit and/or counseling patient: Coding Level of Care Code 02246 SUB INP/OBS CARE 2/35MIN Diagnoses Generalized weakness R53.1 Fall W19.XXXA Encounter type: initial encounter COVID-19 virus infection U07.1 (2) Fall Encounter type: initial encounter Qualified Code(s): W19.XXXA - Unspecified fall, initial encounter
[2023-10-29 07:26] LABS: Hematocrit (blood only) 35.3 % (37.0-47.0); Hemoglobin 12.3 g/dl (12.0-16.0); Immature Granulocytes # (auto) 0.01 K/uL (0.01-0.20); Immature Granulocytes % (auto) 0.2 %; Lymphocytes # (auto) 0.69 K/uL (1.20-3.40); Lymphocytes % (auto) 14.5 %; Mean Corpuscular Hemoglobin 32.5 pg (25.0-34.0); Mean Corpuscular Hgb Conc 34.8 g/dL (32.0-36.0); Mean Corpuscular Volume 93.4 fL (80.0-100.0); Monocytes % (auto) 4.2 %; Neutrophils # (auto) 3.86 K/uL (1.40-6.50); Neutrophils % (auto) 81.1 %; Platelet Count 189 K/uL (130-400); RDW Coefficient of Variation 13.3 % (11.5-14.5); RDW Standard Deviation 45.7 fL (36.4-46.3); Red Blood Count 3.78 M/uL (4.20-5.40); White Blood Count 4.76 K/ul (4.8-10.8)
[2023-10-29 07:45] LABS: Albumin Globulin Ratio 1.3 (0.9-2); Albumin Level 3.4 gm/dl (3.4-5.0); Bilirubin,Total 0.4 mg/dl (0.2-1.0); C Reactive Protein 2.28 mg/dl (0-0.5); Calcium 8.5 mg/dl (8.6-10.3); Creatinine Clr Calc Pharmacy 58.3 ml/min; Est GFR (African American) 94.3 ml/min; Est GFR (Non-African American) 81.4 ml/min; Globulin 2.6 gm/dl (2.5-4.0); Magnesium 1.9 mg/dl (1.7-2.4)
[2023-10-29 07:51] LABS: INR 1.1 (0.9-1.1); Prothrombin Time 11.5 Seconds (9.0-12.0)
[2023-10-29 08:21] VITALS: BP 177/64; PULSE 62; RESP 18; TEMP 98.2; O2SAT 93
--- NOTE | 2023-10-29 11:09 | Discharge Summary ---
Discharge Summary Date of Service October 29, 2023 Principal Dx & Hospital Course #1 = Principal Diagnosis (1) Generalized weakness: Patient presented to the ED on 10/25 after sustaining a fall trying to get out of bed. She awoke with generalized weakness/fatigue and confirmed b/l knees gave out when she tried to stand out of bed. Patient denies LOC and is not on anticoagulation. She has several family members with COVID and also recently got the COVID-19 vaccine on 10/24. Respiratory Biofire was + for COVID-19. CXR negative. CBC/BMP stable. Urine culture negative. Paxlovid stopped day after admission and dexamethasone started. Patient discharged home on remaining doses of dexamethasone to complete her treatment. Initially patient was to report to rehab upon discharge however, therapy re-evaluated her and she was stable to return home with home health. (2) Fall: Experienced a fall while attempting to get out of bed due to bilateral knees giving out from generalized weakness. Etiology likely due to generalized weakness from acute COVID-19 infection Less likely due ot neurologic complication from vaccination such as Guillain- Hudson syndrome. No acute trauma on examination and nonfocal neurologic exam. Rest of care per generalized weakness plan (3) COVID-19 virus infection: Stable on room air and in no respiratory distress -Dexamethasone started 10/26 - discharged home on -CRP 10/28 - 2.28 (downtrending) Admission HPI Per Admitting Provider Shahnaz is a 87-year-old female with a past medical history significant for hypertension, left bundle branch block, and gout who presented to [facility] ED via EMS on 10/26/2023 after sustaining a fall while trying to get out of bed due to generalized weakness. The patient reported she was recently around individuals who are positive for COVID-19 and happened receive her COVID-19 and influenza vaccinations on 10/25/2023. On arrival she was noted to be hypertensive at 174/78, tachycardic at 104, but otherwise stable. Labs were significant for SARS-CoV-2 PCR positive with influenza/RSV screens negative. Chest x-ray is negative for acute findings. We are asked to admit the patient as she is currently too weak to safely ambulate at home herself. Prior to admission the patient was given 500 mL normal saline. Patient was seen in bed no acute distress at time the exam with her daughter and son-in-law sitting bedside, history is obtained from all. They confirm that multiple family members were recently diagnosed with COVID and that the patient received her doses of the COVID-19 and influenza vaccines on 10/25/2023. The patient states that when she woke this a.m. she was significantly fatigued and generally weak. When she tried to get out of bed her bilateral knees buckled and gave out causing her to fall to the ground. She landed on her buttocks and does not believe that she hit her head. She denies losing consciousness. Denies any pain from her fall. No recent headache, changes in vision, hearing, taste, smell, paresthesias, unilateral weakness, chest pain, shortness of breath, abdominal pain, nausea/vomiting, diarrhea, dysuria/hematuria, or recent lower extremity swelling. We discussed the option of having family grape picker an outpatient prescription for Paxlovid which they could bring in so she could begin treatment during this admission. They are in agreement with this plan, her daughter will grape picker the prescription this afternoon and bring it back to the hospital. Patient confirms she is a DNR/DNI and would want her daughter to make medical decisions for her if she cannot make them herself. Please refer to Dr. Vergara's attestation for any changes to the treatment plan Discharge Exam Constitutional WD/WN, vitals as above Eyes PERRL, conjunctivae normal, anicteric sclerae Respiratory normal respiratory effort, lungs clear to auscultation Cardiovascular RRR, no murmur, no edema Skin no rashes, warm and dry Psychiatric A+Ox3, euthymic affect Discharge Plan Discharge Items Patient Disposition: Home - Home Health Services Reason For Visit: GENERALIZED WEAKNESS, COVID 19 INFECTION Discharge Diagnosis: COVID-19 Activity: Resume your previous activity Non-emergency contact: Primary Care Provider Call non-emergency contact if: you have any medication questions and you have a fever Follow-up/Referrals: Amira Vela CRNP [Primary Care Provider] - Diet: Heart Healthy and Low Sodium (2gm) Addtl Attending Provider Instructions: Mrs. Narvaez, You were recently hospitalized following a COVID-19 infection. Please see recommendations below regarding your discharge. 1. Please take Dexamethasone once daily for the next 7 days. Your next dose will be in the morning of 10/29. 2. You do not need to finish your course of Paxlovid. Dexamethasone is being used instead to help with your COVID symptoms. 3. Please use Mucinex as needed for cough or congestion. 4. Please use Tylenol for pain or fever. 5. Home health will be set up for you to obtain physical therapy and occupational therapy at home. If you develop any worsening of your symptoms including weakness, fever, chills, chest pain, or shortness of breath please report back to the ER for further evaluation. Please follow up with PCP within 1-2 weeks of discharge. Sincerely, Heavenly Lorenzo PA-C Pending Studies at Discharge: No Stand-Alone Forms: My [facility] [employer], Smoking Cessation Medications and DC Order Prescriptions: New dexamethasone 4 mg Tablet 6 mg PO DAILY Qty: 7 0RF Continued conjugated estrogens 0.3 mg tablet 0.3 mg PO Q OTHER DAY Qty: 45 3RF latanoprost [Xalatan] 0.005 % drops 1 drops OPL DAILY multivitamin [Multiple Vitamins] Tablet 1 tab PO DAILY Hair, Skin, Nails with Biotin 7.5-7.5-1,250 mg-unit-mcg tablet,chewable 2 tab PO DAILY cyanocobalamin (vitamin B-12) [Vitamin B-12] 1,000 mcg Tablet 1,000 mcg PO DAILY cholecalciferol (vitamin D3) [Vitamin D3] 25 mcg (1,000 unit) Tablet 1,000 unit PO DAILY acetaminophen 650 mg Tablet Extended Release 650 mg PO BID ibuprofen [Advil] 200 mg Tablet 200 mg PO BID Rx Instructions: Take with tylenol Discharge Orders: Discharge Order (Routine); Ordered 10/29/23 Ordered By: Heavenly Lorenzo Admission Data Admit Date/Time: 10/28/23 09:29 Attending Provider: Gilson Whitney Admit Provider: Gilson Whitney Primary Care Provider: Amira Vela Other Providers: Matt Vergara; [facility] Other Interventions: Discharge Summary Assessment (RN) Last Done: 10/29/23 11:29 Hospital Stay Data Consultations 10/26/23 11:30 ED Decision to Admit Stat Pending Results Patient Have Any Pending Studies at Discharge: No Discharge Instructions Given to Patient (Per Discharging Provider) Mrs. Narvaez, Joselo were recently hospitalized following a COVID-19 infection. Please see recommendations below regarding your discharge. 1. Please take Dexamethasone once daily for the next 7 days. Your next dose will be in the morning of 10/29. 2. You do not need to finish your course of Paxlovid. Dexamethasone is being used instead to help with your COVID symptoms. 3. Please use Mucinex as needed for cough or congestion. 4. Please use Tylenol for pain or fever. 5. Home health will be set up for you to obtain physical therapy and occupational therapy at home. If you develop any worsening of your symptoms including weakness, fever, chills, chest pain, or shortness of breath please report back to the ER for further evaluation. Please follow up with PCP within 1-2 weeks of discharge. Sincerely, Heavenly Lorenzo PA-C Total Time Total Time Spent Total Time Spent (In Minutes): 42 Total Time Includes: Examination of the Patient, Discharge Planning and Medication Reconciliation Coding Level of Care Code 29230 INP/OBS DISCH >30 MIN Diagnoses Generalized weakness R53.1 Fall W19.XXXA Encounter type: initial encounter COVID-19 virus infection U07.1
== END 2023-10-29 13:28 | disposition home health service (06) | DRG 179 ==
LOC: ED 10:14 → EDINP 10:14 → SUATTDRO 11:39 → 3W 13:22